=== PATIENT | male | born 1995 | race Caucasian/White ===

== ENCOUNTER 2017-03-20 14:24 | Emergency (ER) | payer SELFPAY, OTHER, MEDICAID ==
[2017-03-20] MEDS: FLUORESCEIN STRIP RIGHT EYE (16:31)
[2017-03-20] MEDS: TETRACAINE 0.5% 4 ML OPH RIGHT EYE (16:31)
== END 2017-03-20 17:51 | disposition home or self-care (01) ==
LOC: FTE 14:24
DX: H57.8 Other specified disorders of eye and adnexa (principal)
CPT/HCPCS: 99284

== ENCOUNTER 2018-05-09 19:20 | Inpatient (IN) | payer MEDICAID, OTHER ==
[2018-05-09] MEDS: morphine 4 MG/ML VIAL IV (19:32)
[2018-05-09] MEDS: ONDANSETRON 4 MG INJ IV (19:32)
[2018-05-09] MEDS: SOD CHLORIDE 0.9% 1,000 ML IV (19:32)
[2018-05-09 19:36] LABS: ADD MAN DIFF? NO
[2018-05-09 19:39] LABS: WHITE BLOOD COUNT 12.8 10^3/ul (4.8-10.8)
[2018-05-09 19:39] LABS: ABNORMAL IP MESSAGE 1; BASOPHIL # 0.1 10^3/ul (0.0-0.1); BASOPHILS % 0.5 % (0.0-2.0); EOSINOPHILS # 0.2 10^3/ul (0.0-0.5); EOSINOPHILS % 1.3 % (0.0-7.0); HEMOGLOBIN 14.2 g/dl (14.0-18.0); LYMPHOCYTES # 5.9 10^3/ul (0.8-2.9); LYMPHOCYTES % 46.4 % (15.0-51.0); MEAN CORPUSCULAR HEMOGLOBIN 29.2 pg (29.0-33.0); MEAN CORPUSCULAR HGB CONC 32.3 g/dl (32.0-37.0); MEAN CORPUSCULAR VOLUME 90.3 fl (82.0-101.0); MEAN PLATELET VOLUME 8.8 fl (7.4-10.4); MONOCYTE # 0.9 10^3/ul (0.3-0.9); NEUTROPHIL # 5.6 10^3/ul (1.6-7.5); NEUTROPHILS % 44.3 % (39.0-77.0); PLATELET COUNT 389 10^3/UL (140-415); POSITIVE DIFF @See below; RED BLOOD COUNT 4.87 10^6/ul (4.70-6.10); RED CELL DISTRIBUTION WIDTH 12.8 % (11.5-14.5)
[2018-05-09] MEDS: HYDROmorphONE 2 MG/ML SYG IV ×2 (19:42→22:03)
[2018-05-09 19:53] LABS: INR 0.92; PROTIME 12.5 Sec (11.9-14.9)
[2018-05-09 19:54] LABS: PARTIAL THROMBOPLASTIN TIME 30.9 Sec (23.0-35.0)
[2018-05-09 20:05] LABS: ALANINE AMINOTRANSFERASE 42 IU/L (13-69); ALBUMIN 4.9 g/dl (3.3-4.9); ALBUMIN/GLOBULIN RATIO 1.68; ALKALINE PHOSPHATASE 78 IU/L (42-121); ANION GAP 21 (5-13); ASPARTATE AMINO TRANSFERASE 59 IU/L (15-46); BILIRUBIN,INDIRECT 0.4 mg/dl (0-1.1); BILIRUBIN,TOTAL 0.4 mg/dl (0.2-1.3); BLOOD UREA NITROGEN 11 mg/dl (7-20); CALCIUM 9.7 mg/dl (8.4-10.2); CARBON DIOXIDE 22 mmol/L (21-31); CHLORIDE 103 mmol/L (97-110); CREATININE 0.88 mg/dl (0.61-1.24); Estimated GFR > 60 mL/min (>60); GLUCOSE 99 mg/dl (70-220); LIPASE 115 U/L (23-300); POTASSIUM 3.8 mmol/L (3.5-5.1); SODIUM 146 mmol/L (135-144); TOTAL PROTEIN 7.8 g/dl (6.1-8.1)
[2018-05-09 20:16] LABS: TROPONIN-I < 0.012 ng/ml (0.000-0.120)
[2018-05-09] MEDS: SOD CHLORIDE 0.9% 100 ML (20:28)
[2018-05-09] MEDS: IOHEXOL 300MG/ML 150 ML BTL (20:28)
[2018-05-09] MEDS ORDERED: ONDANSETRON 4 MG INJ IV ×2 (22:30→23:00)
[2018-05-09] MEDS ORDERED: ACETAMINOPHEN 325 MG TAB PO ×2 (22:30→23:00)
[2018-05-09] MEDS ORDERED: BISACODYL (EC) 5 MG TAB PO (23:00)
[2018-05-09] MEDS ORDERED: NACL 0.9% 3 ML SYG IV (23:00)
[2018-05-09] MEDS ORDERED: DOCUSATE SODIUM 100 MG CAP PO (23:00)
[2018-05-09] MEDS ORDERED: HYDROCODONE/APAP (5/325) TAB PO (23:30)
[2018-05-09] MEDS: HYDROmorphONE 1 MG/ML SYG IV (23:59)
[2018-05-10] MEDS: HYDROCODONE/APAP (5/325) TAB PO ×2 (00:28→11:03)
[2018-05-10] MEDS: HYDROmorphONE 1 MG/ML SYG IV ×2 (02:27→08:12)
[2018-05-10 05:32] LABS: ADD MAN DIFF? NO
[2018-05-10 05:44] LABS: WHITE BLOOD COUNT 12.8 10^3/ul (4.8-10.8)
[2018-05-10 05:44] LABS: BASOPHILS % 0.3 % (0.0-2.0); EOSINOPHILS # 0.1 10^3/ul (0.0-0.5); EOSINOPHILS % 0.6 % (0.0-7.0); HEMATOCRIT 42.2 % (42.0-52.0); HEMOGLOBIN 13.8 g/dl (14.0-18.0); LYMPHOCYTES # 3.4 10^3/ul (0.8-2.9); LYMPHOCYTES % 26.3 % (15.0-51.0); MEAN CORPUSCULAR HEMOGLOBIN 29.3 pg (29.0-33.0); MEAN CORPUSCULAR HGB CONC 32.7 g/dl (32.0-37.0); MEAN CORPUSCULAR VOLUME 89.6 fl (82.0-101.0); MEAN PLATELET VOLUME 8.9 fl (7.4-10.4); MONOCYTE # 1.2 10^3/ul (0.3-0.9); MONOCYTES % 9.2 % (0.0-11.0); NEUTROPHIL # 8.1 10^3/ul (1.6-7.5); NEUTROPHILS % 63.2 % (39.0-77.0); PLATELET COUNT 331 10^3/UL (140-415); RED BLOOD COUNT 4.71 10^6/ul (4.70-6.10); RED CELL DISTRIBUTION WIDTH 13.2 % (11.5-14.5)
[2018-05-10 06:16] LABS: ALANINE AMINOTRANSFERASE 48 IU/L (13-69); ALBUMIN 4.2 g/dl (3.3-4.9); ALBUMIN/GLOBULIN RATIO 1.61; ALKALINE PHOSPHATASE 65 IU/L (42-121); ANION GAP 10 (5-13); ASPARTATE AMINO TRANSFERASE 46 IU/L (15-46); BILIRUBIN,INDIRECT 0.6 mg/dl (0-1.1); BILIRUBIN,TOTAL 0.6 mg/dl (0.2-1.3); BLOOD UREA NITROGEN 10 mg/dl (7-20); CALCIUM 8.9 mg/dl (8.4-10.2); CARBON DIOXIDE 28 mmol/L (21-31); CHLORIDE 103 mmol/L (97-110); CREATININE 0.71 mg/dl (0.61-1.24); Estimated GFR > 60 mL/min (>60); GLUCOSE 100 mg/dl (70-220); MAGNESIUM 2.2 mg/dl (1.7-2.5); POTASSIUM 4.1 mmol/L (3.5-5.1); SODIUM 141 mmol/L (135-144); TOTAL PROTEIN 6.8 g/dl (6.1-8.1)
[2018-05-10] MEDS ORDERED: NICOTINE (21 MG/24 HR) PATCH TRANSDERM (11:00)
== END 2018-05-10 14:07 | disposition home or self-care (01) | DRG 201 ==
LOC: MS3 22:03 → E/R 19:20
DX: S27.0XXA Traumatic pneumothorax, initial encounter (principal); M25.511 Pain in right shoulder; X99.8XXA Assault by other sharp object, initial encounter; Y93.89 Activity, other specified; Y92.89 Other specified places as the place of occurrence of the external cause; Y99.8 Other external cause status; Z72.0 Tobacco use
CPT/HCPCS: 36415; 71045; 71260; 73030-RT; 74177; 80053; 83690; 83735; 84484; 85025; 85610; 85730; 93005; 96374; 96375; 96376; 99291-25